=== PATIENT | male | born 1945 | race Caucasian/White ===

== ENCOUNTER → 2016-08-27 | Outpatient (CLI) | payer MEDICARE, OTHER ==
--- NOTE | 2016-08-27 17:21 | WOMENS IMAGING REPORT ---
EXAM DESCRIPTION: BILAT DIAGNOSTIC MAMMO W/CAD; U/S BREAST UNILAT LIMITED COMPLETED DATE/TIME: 08/27/2016 8:54 am; 08/27/2016 9:38 am REASON FOR STUDY: N63 LUMP; LUMP;N63 N63 UNSPECIFIED LUMP IN BREAST male patient, left breast palpa ble abnormality COMPARISON: None. TECHNIQUE: Standard craniocaudal and mediolateral oblique views of each breast recorded using digita l acquisition. Additional left retroareolar cone compression in the CC and MLO orientations, left breast 90 mediola teral view. Left retroareolar ultrasound with comparison right breast ultrasound imaging LIMITATIONS: None. FINDINGS: RIGHT BREAST MASSES: No suspicious masses. CALCIFICATIONS: No new or suspicious calcifications. ARCHITECTURAL DISTORTION: None. DEVELOPING DENSITY: None. ASYMMETRY: None noted. OTHER: No other significant findings. LEFT BREAST MASSES: No suspicious masses. CALCIFICATIONS: No new or suspicious calcifications. ARCHITECTURAL DISTORTION: None. DEVELOPING DENSITY: None. ASYMMETRY: There is asymmetric left retro areolar breast tissue from gynecomastia. No worrisome feat ures by mammography. OTHER: No other significant finding. Read with the assistance of CAD: .[facility] - R2 Cenova Version 1.3 .[facility] Imaging - R2 Cenova Version 1.[address] Imaging - R2 Cenova Version 2.4 .[facility] [place] [facility] - R2 Cenova Version 2.4 .[facility] - R2 Chain Person Version 9.2 Bilateral breast ultrasound: Ultrasound of the left retroareolar region demonstrates minimal gynecomastia with hypoechoic breast t issue. No worrisome sonographic features. Comparison right retroareolar ultrasound is unremarkable. BREAST DENSITY: a. The breasts are almost entirely fatty. BIRAD: 2 Benign findings. RECOMMENDATION: RECOMMENDED FOLLOW UP: Clinical followup for gynecomastia SPECIFIC INTERVENTION/IMAGING/CONSULTATION RECOMMENDED:No additional intervention/ imaging/consultati on needed at this time. COMMUNICATION:Patient notified by letter. COMMENT: PATIENT NOTIFIED BY LETTER. The [employer] (ACR) has developed recommendations for screening MRI of the breast s in certain patient populations, to be used in conjunction with mammography. Breast MRI surveillanc e may be appropriate for women with more than 20% lifetime risk of developing breast cancer as deter mined by genetic testing, significant family history of the disease, or history of mantle radiation f or Hodgkins Disease. ACR Practice Guidelines 2008. TECHNICAL DOCUMENTATION: FINDING NUMBER: (1) ASSESSMENT: (1) JOB ID: [id number] [employer]- All Rights Reserved
--- NOTE | 2016-08-27 17:21 | WOMENS IMAGING REPORT ---
EXAM DESCRIPTION: BILAT DIAGNOSTIC MAMMO W/CAD; U/S BREAST UNILAT LIMITED COMPLETED DATE/TIME: 08/27/2016 8:54 am; 08/27/2016 9:38 am REASON FOR STUDY: N63 LUMP; LUMP;N63 N63 UNSPECIFIED LUMP IN BREAST male patient, left breast palpa ble abnormality COMPARISON: None. TECHNIQUE: Standard craniocaudal and mediolateral oblique views of each breast recorded using digita l acquisition. Additional left retroareolar cone compression in the CC and MLO orientations, left breast 90 mediola teral view. Left retroareolar ultrasound with comparison right breast ultrasound imaging LIMITATIONS: None. FINDINGS: RIGHT BREAST MASSES: No suspicious masses. CALCIFICATIONS: No new or suspicious calcifications. ARCHITECTURAL DISTORTION: None. DEVELOPING DENSITY: None. ASYMMETRY: None noted. OTHER: No other significant findings. LEFT BREAST MASSES: No suspicious masses. CALCIFICATIONS: No new or suspicious calcifications. ARCHITECTURAL DISTORTION: None. DEVELOPING DENSITY: None. ASYMMETRY: There is asymmetric left retro areolar breast tissue from gynecomastia. No worrisome feat ures by mammography. OTHER: No other significant finding. Read with the assistance of CAD: .[facility] - R2 Cenova Version 1.3 .[facility] Imaging - R2 Cenova Version 1.[address] Imaging - R2 Cenova Version 2.4 .[facility] [place] R2 Cenova Version 2.4 .[facility] - R2 Fingernail Technician Version 9.2 Bilateral breast ultrasound: Ultrasound of the left retroareolar region demonstrates minimal gynecomastia with hypoechoic breast t issue. No worrisome sonographic features. Comparison right retroareolar ultrasound is unremarkable. BREAST DENSITY: a. The breasts are almost entirely fatty. BIRAD: 2 Benign findings. RECOMMENDATION: RECOMMENDED FOLLOW UP: Clinical followup for gynecomastia SPECIFIC INTERVENTION/IMAGING/CONSULTATION RECOMMENDED:No additional intervention/ imaging/consultati on needed at this time. COMMUNICATION:Patient notified by letter. COMMENT: PATIENT NOTIFIED BY LETTER. The [employer] (ACR) has developed recommendations for screening MRI of the breast s in certain patient populations, to be used in conjunction with mammography. Breast MRI surveillanc e may be appropriate for women with more than 20% lifetime risk of developing breast cancer as deter mined by genetic testing, significant family history of the disease, or history of mantle radiation f or Hodgkins Disease. ACR Practice Guidelines 2008. TECHNICAL DOCUMENTATION: FINDING NUMBER: (1) ASSESSMENT: (1) JOB ID: [id number] [employer]- All Rights Reserved
--- NOTE | 2016-08-27 17:21 | WOMENS IMAGING REPORT ---
EXAM DESCRIPTION: BILAT DIAGNOSTIC MAMMO W/CAD; U/S BREAST UNILAT LIMITED COMPLETED DATE/TIME: 08/27/2016 8:54 am; 08/27/2016 9:38 am REASON FOR STUDY: N63 LUMP; LUMP;N63 N63 UNSPECIFIED LUMP IN BREAST male patient, left breast palpa ble abnormality COMPARISON: None. TECHNIQUE: Standard craniocaudal and mediolateral oblique views of each breast recorded using digita l acquisition. Additional left retroareolar cone compression in the CC and MLO orientations, left breast 90 mediola teral view. Left retroareolar ultrasound with comparison right breast ultrasound imaging LIMITATIONS: None. FINDINGS: RIGHT BREAST MASSES: No suspicious masses. CALCIFICATIONS: No new or suspicious calcifications. ARCHITECTURAL DISTORTION: None. DEVELOPING DENSITY: None. ASYMMETRY: None noted. OTHER: No other significant findings. LEFT BREAST MASSES: No suspicious masses. CALCIFICATIONS: No new or suspicious calcifications. ARCHITECTURAL DISTORTION: None. DEVELOPING DENSITY: None. ASYMMETRY: There is asymmetric left retro areolar breast tissue from gynecomastia. No worrisome feat ures by mammography. OTHER: No other significant finding. Read with the assistance of CAD: .[facility] - R2 Cenova Version 1.3 .[facility] Imaging - R2 Cenova Version 1.3 .[facility] Imaging - R2 Cenova Version 2.4 .[facility] - R2 Cenova Version 2.4 .[facility] - R2 Outreach Team Member Version 9.2 Bilateral breast ultrasound: Ultrasound of the left retroareolar region demonstrates minimal gynecomastia with hypoechoic breast t issue. No worrisome sonographic features. Comparison right retroareolar ultrasound is unremarkable. BREAST DENSITY: a. The breasts are almost entirely fatty. BIRAD: 2 Benign findings. RECOMMENDATION: RECOMMENDED FOLLOW UP: Clinical followup for gynecomastia SPECIFIC INTERVENTION/IMAGING/CONSULTATION RECOMMENDED:No additional intervention/ imaging/consultati on needed at this time. COMMUNICATION:Patient notified by letter. COMMENT: PATIENT NOTIFIED BY LETTER. The [employer] (ACR) has developed recommendations for screening MRI of the breast s in certain patient populations, to be used in conjunction with mammography. Breast MRI surveillanc e may be appropriate for women with more than 20% lifetime risk of developing breast cancer as deter mined by genetic testing, significant family history of the disease, or history of mantle radiation f or Hodgkins Disease. ACR Practice Guidelines 2008. TECHNICAL DOCUMENTATION: FINDING NUMBER: (1) ASSESSMENT: (1) JOB ID: [id number] [employer]- All Rights Reserved
== END ==
LOC: WI 08:15
PROVIDERS: ATTEND Family Medicine
DX: N62 Hypertrophy of breast (principal)
CPT/HCPCS: 76642; G0204; 77066

== ENCOUNTER 2016-09-01 09:39 | Emergency (ER) | payer MEDICARE, OTHER ==
--- NOTE | 2016-09-01 09:58 | ER Document Report ---
ED Medical Screen (RME) - General Stated Complaint: NOSE BLEED Notes: THIS morning with a nosebleed which since stopped. States she's had a sinus infection recently. And takes an anticoagulant I greeted and performed a rapid initial assessment of this patient. Comprehensive ED assessment and evaluation of the patient, analysis of test results and completion of the medical decision making process will be conducted by additional ED providers. TRAVEL OUTSIDE OF THE [place] IN LAST 30 DAYS: No - Related Data Allergies/Adverse Reactions: No Known Drug Allergies Allergy (Verified 06/05/16 16:29) Past Medical History - Past Medical History Cardiac Medical History: Reports: Hx Atrial Fibrillation, Hx Congestive Heart Failure, Hx Coronary Artery Disease, Hx Hypercholesterolemia, Hx Hypertension Denies: Hx Heart Attack Pulmonary Medical History: Denies: Hx Asthma, Hx Bronchitis, Hx COPD, Hx Pneumonia Neurological Medical History: Denies: Hx Cerebrovascular Accident, Hx Seizures Endocrine Medical History: Reports: Hx Diabetes Mellitus Type 2 Musculoskeltal Medical History: Reports Hx Arthritis Psychiatric Medical History: Denies: Hx Depression Past Surgical History: Reports: Hx Cardiac Surgery - 3 stents, Hx Kidney (Renal Surgery) - Left Kidney mass removed February,, Hx Thyroid Surgery. Denies: Hx Pacemaker - Immunizations Hx Diphtheria, Pertussis, Tetanus Vaccination: Yes Physical Exam - Vital signs Vitals: Temp Pulse Resp BP Pulse Ox 98.2 F 69 18 141/65 H 97 09/01/16 09:55 09/01/16 09:55 09/01/16 09:55 09/01/16 09:55 09/01/16 09:55 Course - Vital Signs Vital signs: Temp Pulse Resp BP Pulse Ox 98.2 F 69 18 141/65 H 97 09/01/16 09:55 09/01/16 09:55 09/01/16 09:55 09/01/16 09:55 09/01/16 09:55
[2016-09-01 10:46] LABS: PROTHROMBIN TIME 14.4 SEC (11.4-15.4)
--- NOTE | 2016-09-01 11:20 | ER Document Report ---
ED ENT - General Chief Complaint: Nose Bleed Stated Complaint: NOSE BLEED Mode of Arrival: Ambulatory Information source: Patient Notes: 71-year-old Male presents to the emergency department complaining of episode of nose bleeding this morning. Patient reports has had congestion and clear runny nose over the last 2 days and states woke up this morning and noted his left nostril to be bleeding. Patient reports bleeding lasted intermittently for approximately 2 hours before self resolving upon arrival to ED. Denies previous history of epistaxis and states is on Xarelto due to cardiac history. Denies fever, chest pain, shortness of breath, weakness, dizziness, or syncope. TRAVEL OUTSIDE OF THE [place] IN LAST 30 DAYS: No - HPI Patient complains to provider of: Nose problem Onset: This morning Onset/Duration: Better Severity: Mild Pain Level: Denies Context: Recent Illness Similar symptoms previously: No - Related Data Allergies/Adverse Reactions: No Known Drug Allergies Allergy (Verified 09/01/16 09:58) Past Medical History - General Information source: Patient - Social History Smoking Status: Never Smoker Chew tobacco use (# tins/day): No Frequency of alcohol use: None Drug Abuse: None Lives with: Family Family History: Reviewed & Not Pertinent Patient has suicidal ideation: No Patient has homicidal ideation: No - Past Medical History Cardiac Medical History: Reports: Hx Atrial Fibrillation, Hx Congestive Heart Failure, Hx Coronary Artery Disease, Hx Hypercholesterolemia, Hx Hypertension Denies: Hx Heart Attack Pulmonary Medical History: Denies: Hx Asthma, Hx Bronchitis, Hx COPD, Hx Pneumonia Neurological Medical History: Denies: Hx Cerebrovascular Accident, Hx Seizures Endocrine Medical History: Reports: Hx Diabetes Mellitus Type 2 Renal/ Medical History: Denies: Hx Peritoneal Dialysis Musculoskeltal Medical History: Reports Hx Arthritis Psychiatric Medical History: Denies: Hx Depression Past Surgical History: Reports: Hx Cardiac Surgery - 3 stents, Hx Kidney (Renal Surgery) - Left Kidney mass removed February,, Hx Thyroid Surgery. Denies: Hx Pacemaker - Immunizations Hx Diphtheria, Pertussis, Tetanus Vaccination: Yes Review of Systems - Review of Systems Constitutional: No symptoms reported EENT: See HPI Cardiovascular: No symptoms reported Respiratory: No symptoms reported Gastrointestinal: No symptoms reported Genitourinary: No symptoms reported Male Genitourinary: No symptoms reported Musculoskeletal: No symptoms reported Skin: No symptoms reported Hematologic/Lymphatic: No symptoms reported Neurological/Psychological: No symptoms reported -: Yes All other systems reviewed and negative Physical Exam - Vital signs Vitals: Temp Pulse Resp BP Pulse Ox 98.2 F 69 18 141/65 H 97 09/01/16 09:55 09/01/16 09:55 09/01/16 09:55 09/01/16 09:55 09/01/16 09:55 Interpretation: Normal - General General appearance: Appears well, Alert In distress: None - HEENT Head: Normocephalic, Atraumatic Eyes: Normal Conjunctiva: Normal Eyelashes: Normal Pupils: PERRL Ears: Normal External canal: Normal Tympanic membrane: Normal Sinus: Normal. No: Tenderness Nasal: Other - Mild bilateral nasal turbinate swelling. No: Bloody discharge, Ecchymosis, Epistaxis, Purulent discharge Mouth/Lips: Normal Mucous membranes: Normal, Moist Pharynx: Normal. No: Blood in hypopharynx, Erythema, Exudate, Peritonsillar abscess, Post nasal drainage, Retropharyngeal abscess, Tonsillar hypertrophy, Uvular edema, Potential airway comprom., Other Neck: Normal. No: Anterior cervical chain, Posterior cervical chain, Lymphadenopathy, Meningismus, Subcutaneous emphysema - Respiratory Respiratory status: No respiratory distress Chest status: Nontender Breath sounds: Normal Chest palpation: Normal - Cardiovascular Rhythm: Regular Heart sounds: Normal auscultation Murmur: No Pulses: Normal: Radial Normal capillary refill: Yes - Abdominal Inspection: Normal Distension: No distension Bowel sounds: Normal Tenderness: Nontender Organomegaly: No organomegaly - Back Back: Normal, Nontender - Extremities General upper extremity: Normal inspection, Nontender, Normal color, Normal ROM , Normal strength, Normal temperature. No: Tender, Edema General lower extremity: Normal inspection, Nontender, Normal color, Normal ROM , Normal strength, Normal temperature, Normal weight bearing. No: Tender, Edema - Neurological Neuro grossly intact: Yes Cognition: Normal Orientation: AAOx4 [place] Coma Scale Eye Opening: Spontaneous [place] Coma Scale Verbal: Oriented [place] Coma Scale Motor: Obeys Commands [place] Coma Scale Total: 15 Speech: Normal Motor strength normal: LUE, RUE, LLE, RLE Sensory: Normal - Psychological Associated symptoms: Normal affect, Normal mood - Skin Skin Temperature: Warm Skin Moisture: Dry Skin Color: Normal Course - Re-evaluation Re-evalutation: 09/01/16 11:21 Patient hemodynamically stable, in no distress, afebrile. Epistaxis resolved prior to evaluation and no active bleeding at this time. Patient presentation and physical exam findings suggestive of mild URI at this time with no indication of a ARBS or other complications at this time. Patient appears stable for discharge and agrees with home care, follow-up with PCP, ED return precautions. - Vital Signs Vital signs: Temp Pulse Resp BP Pulse Ox 98.5 F 66 18 152/67 H 96 09/01/16 11:36 09/01/16 11:36 09/01/16 11:36 09/01/16 11:36 09/01/16 11:36 Discharge - Discharge Clinical Impression: Nosebleed URI (upper respiratory infection) Qualifiers: URI type: unspecified URI Qualified Code(s): J06.9 - Acute upper respiratory infection, unspecified Condition: Stable Disposition: HOME, SELF-CARE Instructions: Nosebleed Instructions ([facility]), Upper Respiratory Illness ([facility]), Acetaminophen, Use of Diphenhydramine Additional Instructions: Follow-up with your primary care provider tomorrow as discussed. Return to the emergency department for any return in or worsening symptoms, or any concerns. Forms: Elevated Blood Pressure Referrals: ELGIN VALENZUELA MD [Primary Care Provider] - Follow up tomorrow
[2016-09-01 11:37] VITALS: BP 152/67
== END 2016-09-01 11:37 | disposition home or self-care (01) ==
LOC: ER 09:39
DX: R04.0 Epistaxis (principal); J06.9 Acute upper respiratory infection, unspecified; I48.91 Unspecified atrial fibrillation; Z79.01 Long term (current) use of anticoagulants; I25.10 Atherosclerotic heart disease of native coronary artery without angina pectoris; I10 Essential (primary) hypertension; E11.9 Type 2 diabetes mellitus without complications; Z98.61 Coronary angioplasty status
CPT/HCPCS: 36415; 85610; 99283

== ENCOUNTER → 2016-11-25 | Outpatient (CLI) | payer MEDICARE, OTHER ==
[2016-11-25 13:01] LABS: HEMOGLOBIN 13.3 g/dL (13.5-17.0); HGB HCT DIFFERENCE -1.1; MEAN CORPUSCULAR HEMOGLOBIN 26.8 pg (27.0-33.4); MEAN CORPUSCULAR HGB CONC 32.4 g/dL (32.0-36.0); MEAN CORPUSCULAR VOLUME 83 fl (80-97); RED BLOOD COUNT 4.95 10^6/uL (4.35-5.55); RED CELL DISTRIBUTION WIDTH 15.3 % (11.5-14.0); WHITE BLOOD COUNT 6.2 10^3/uL (4.0-10.5)
[2016-11-25 13:04] LABS: APPEARANCE,URINE CLEAR; BILIRUBIN,URINE NEGATIVE (NEGATIVE); GLUCOSE, URINE NEGATIVE (NEGATIVE); KETONES,URINE NEGATIVE (NEGATIVE); LEUKOCYTE ESTERASE,URINE NEGATIVE (NEGATIVE); NITRITE,URINE NEGATIVE (NEGATIVE); PROTEIN,URINE NEGATIVE (NEGATIVE); URINE SPECIFIC GRAVITY 1.013; UROBILINOGEN,URINE NEGATIVE mg/dL (<2.0)
[2016-11-25 13:31] LABS: ANION GAP 13 (5-19); BLOOD UREA NITROGEN 22 mg/dL (7-20); CALCIUM 9.6 mg/dL (8.4-10.2); CARBON DIOXIDE 33 mmol/L (22-30); CHLORIDE 100 mmol/L (98-107); CREATININE RESULT 1.48 mg/dL (0.52-1.25); GLUCOSE 128 mg/dL (75-110); POTASSIUM 4.6 mmol/L (3.6-5.0); SODIUM 146.1 mmol/L (137-145)
== END ==
LOC: OD 11:58
PROVIDERS: ATTEND Internal Medicine Nephrology
DX: E11.22 Type 2 diabetes mellitus with diabetic chronic kidney disease (principal); I12.9 Hypertensive chronic kidney disease with stage 1 through stage 4 chronic kidney disease, or unspecified chronic kidney disease; N18.3 Chronic kidney disease, stage 3 (moderate); D64.9 Anemia, unspecified
CPT/HCPCS: 36415; 80048; 81001; 85027

== ENCOUNTER → 2017-01-06 | Outpatient (CLI) | payer MEDICARE, OTHER ==
[2017-01-06 14:17] LABS: HEMATOCRIT 42.7 % (37.9-51.0); HEMOGLOBIN 13.6 g/dL (13.5-17.0); HGB HCT DIFFERENCE -1.9; MEAN CORPUSCULAR HEMOGLOBIN 26.7 pg (27.0-33.4); MEAN CORPUSCULAR HGB CONC 31.8 g/dL (32.0-36.0); MEAN CORPUSCULAR VOLUME 84 fl (80-97); RED BLOOD COUNT 5.07 10^6/uL (4.35-5.55); WHITE BLOOD COUNT 6.4 10^3/uL (4.0-10.5)
[2017-01-06 14:29] LABS: ANION GAP 11 (5-19); BLOOD UREA NITROGEN 21 mg/dL (7-20); CALCIUM 9.3 mg/dL (8.4-10.2); CARBON DIOXIDE 30 mmol/L (22-30); CHLORIDE 100 mmol/L (98-107); CREATININE RESULT 1.39 mg/dL (0.52-1.25); GLUCOSE 161 mg/dL (75-110); MAGNESIUM 2.2 mg/dL (1.6-2.3); SODIUM 141.1 mmol/L (137-145)
== END ==
LOC: OD 13:22
PROVIDERS: ATTEND Internal Medicine Nephrology
DX: I12.9 Hypertensive chronic kidney disease with stage 1 through stage 4 chronic kidney disease, or unspecified chronic kidney disease (principal); N18.3 Chronic kidney disease, stage 3 (moderate); E87.6 Hypokalemia; E11.9 Type 2 diabetes mellitus without complications
CPT/HCPCS: 36415; 80048; 83735; 85027

== ENCOUNTER → 2017-01-30 | Outpatient (CLI) | payer MEDICARE ==
[2017-01-30 10:08] LABS: ANION GAP 13 (5-19); BLOOD UREA NITROGEN 45 mg/dL (7-20); CALCIUM 8.8 mg/dL (8.4-10.2); CARBON DIOXIDE 30 mmol/L (22-30); CHLORIDE 95 mmol/L (98-107); CREATININE RESULT 2.33 mg/dL (0.52-1.25); GLUCOSE 124 mg/dL (75-110); MAGNESIUM 2.3 mg/dL (1.6-2.3); POTASSIUM 4.2 mmol/L (3.6-5.0)
== END ==
LOC: OD 09:07
PROVIDERS: ATTEND Internal Medicine Nephrology
DX: E11.22 Type 2 diabetes mellitus with diabetic chronic kidney disease (principal); N18.3 Chronic kidney disease, stage 3 (moderate); I50.9 Heart failure, unspecified; E87.5 Hyperkalemia
CPT/HCPCS: 36415; 80048; 83735

== ENCOUNTER → 2017-03-11 | Day surgery (SDC) | payer MEDICARE ==
[~2017-03-11] MED LIST: LIDOCAINE 2% JELLY 5 ML TUBE ONE
== END ==
LOC: END 09:43
PROVIDERS: ATTEND Thoracic Surgery (Cardiothoracic Vascular Surgery)
PROC: 4A0B7BZ Measurement of Gastrointestinal Pressure, Via Natural or Artificial Opening (ICD-10-PCS; principal; 2017-03-11)
DX: K30 Functional dyspepsia (principal)
CPT/HCPCS: 91010

== ENCOUNTER → 2017-03-19 | Outpatient (CLI) | payer MEDICARE ==
[2017-03-19 12:11] LABS: HEMATOCRIT 39.5 % (37.9-51.0); HEMOGLOBIN 13.2 g/dL (13.5-17.0); HGB HCT DIFFERENCE 0.1; MEAN CORPUSCULAR HEMOGLOBIN 28.8 pg (27.0-33.4); MEAN CORPUSCULAR HGB CONC 33.5 g/dL (32.0-36.0); MEAN CORPUSCULAR VOLUME 86 fl (80-97); RED CELL DISTRIBUTION WIDTH 17.3 % (11.5-14.0); WHITE BLOOD COUNT 5.5 10^3/uL (4.0-10.5)
[2017-03-19 12:35] LABS: ANION GAP 11 (5-19); BLOOD UREA NITROGEN 34 mg/dL (7-20); CALCIUM 9.1 mg/dL (8.4-10.2); CARBON DIOXIDE 28 mmol/L (22-30); CHLORIDE 101 mmol/L (98-107); CREATININE RESULT 1.45 mg/dL (0.52-1.25); GLUCOSE 115 mg/dL (75-110); POTASSIUM 4.5 mmol/L (3.6-5.0); SODIUM 140.2 mmol/L (137-145)
[2017-03-19 12:37] LABS: MAGNESIUM 2.2 mg/dL (1.6-2.3)
== END ==
LOC: OD 11:22
PROVIDERS: ATTEND Internal Medicine Nephrology
DX: I12.9 Hypertensive chronic kidney disease with stage 1 through stage 4 chronic kidney disease, or unspecified chronic kidney disease (principal); N18.3 Chronic kidney disease, stage 3 (moderate); I50.9 Heart failure, unspecified
CPT/HCPCS: 36415; 80048; 83735; 83970; 84100; 85027

== ENCOUNTER → 2017-03-25 | Outpatient (CLI) | payer MEDICARE ==
[2017-03-25 13:11] LABS: ALANINE AMINOTRANSFERASE 26 U/L (21-72); ALBUMIN 4.2 g/dL (3.5-5.0); ALKALINE PHOSPHATASE 115 U/L (38-126); ANION GAP 13 (5-19); ASPARTATE AMINO TRANSFERASE 19 U/L (17-59); BILIRUBIN,DIRECT 0.4 mg/dL (0.0-0.4); BILIRUBIN,TOTAL 0.5 mg/dL (0.2-1.3); BLOOD UREA NITROGEN 31 mg/dL (7-20); CALCIUM 9.6 mg/dL (8.4-10.2); CARBON DIOXIDE 25 mmol/L (22-30); CHLORIDE 106 mmol/L (98-107); CREATININE RESULT 1.48 mg/dL (0.52-1.25); GLUCOSE 127 mg/dL (75-110); MAGNESIUM 2.3 mg/dL (1.6-2.3); POTASSIUM 4.8 mmol/L (3.6-5.0); SODIUM 143.7 mmol/L (137-145); TOTAL PROTEIN 7.6 g/dL (6.3-8.2)
== END ==
LOC: LAB 11:48
PROVIDERS: ATTEND Physician Assistant Medical
DX: E87.6 Hypokalemia (principal); R06.02 Shortness of breath
CPT/HCPCS: 36415; 80053; 83735; 83880

== ENCOUNTER → 2017-03-31 | Outpatient (CLI) | payer MEDICARE ==
[2017-03-31 11:37] LABS: ALANINE AMINOTRANSFERASE 28 U/L (21-72); ALBUMIN 3.7 g/dL (3.5-5.0); ALKALINE PHOSPHATASE 114 U/L (38-126); ANION GAP 7 (5-19); ASPARTATE AMINO TRANSFERASE 17 U/L (17-59); BILIRUBIN,DIRECT 0.4 mg/dL (0.0-0.4); BILIRUBIN,TOTAL 0.6 mg/dL (0.2-1.3); BLOOD UREA NITROGEN 33 mg/dL (7-20); CALCIUM 9.5 mg/dL (8.4-10.2); CARBON DIOXIDE 34 mmol/L (22-30); CHLORIDE 99 mmol/L (98-107); CREATININE RESULT 1.52 mg/dL (0.52-1.25); GLUCOSE 130 mg/dL (75-110); MAGNESIUM 2.2 mg/dL (1.6-2.3); POTASSIUM 4.3 mmol/L (3.6-5.0); SODIUM 140.4 mmol/L (137-145)
== END ==
LOC: LAB 10:49
PROVIDERS: ATTEND Physician Assistant Medical
DX: R06.02 Shortness of breath (principal); E87.6 Hypokalemia
CPT/HCPCS: 36415; 80053; 83735; 83880

== ENCOUNTER → 2017-06-16 | Outpatient (CLI) | payer MEDICARE ==
[2017-06-16 11:33] LABS: APPEARANCE,URINE CLEAR; BILIRUBIN,URINE NEGATIVE (NEGATIVE); GLUCOSE, URINE NEGATIVE (NEGATIVE); KETONES,URINE NEGATIVE (NEGATIVE); LEUKOCYTE ESTERASE,URINE NEGATIVE (NEGATIVE); NITRITE,URINE NEGATIVE (NEGATIVE); PROTEIN,URINE NEGATIVE (NEGATIVE); URINE SPECIFIC GRAVITY 1.008; UROBILINOGEN,URINE NEGATIVE mg/dL (<2.0)
[2017-06-16 11:38] LABS: HEMATOCRIT 41.9 % (37.9-51.0); HGB HCT DIFFERENCE 0.1; MEAN CORPUSCULAR HEMOGLOBIN 29.2 pg (27.0-33.4); MEAN CORPUSCULAR HGB CONC 33.5 g/dL (32.0-36.0); MEAN CORPUSCULAR VOLUME 87 fl (80-97); RED CELL DISTRIBUTION WIDTH 14.3 % (11.5-14.0); WHITE BLOOD COUNT 5.3 10^3/uL (4.0-10.5)
[2017-06-16 11:55] LABS: ALANINE AMINOTRANSFERASE 33 U/L (21-72); ALBUMIN 3.8 g/dL (3.5-5.0); ALKALINE PHOSPHATASE 99 U/L (38-126); ANION GAP 9 (5-19); ASPARTATE AMINO TRANSFERASE 18 U/L (17-59); BILIRUBIN,DIRECT 0.4 mg/dL (0.0-0.4); BILIRUBIN,TOTAL 0.8 mg/dL (0.2-1.3); BLOOD UREA NITROGEN 18 mg/dL (7-20); CALCIUM 9.6 mg/dL (8.4-10.2); CARBON DIOXIDE 34 mmol/L (22-30); CHLORIDE 102 mmol/L (98-107); CREATININE RESULT 1.42 mg/dL (0.52-1.25); GLUCOSE 142 mg/dL (75-110); POTASSIUM 4.5 mmol/L (3.6-5.0)
[2017-06-16 12:01] LABS: BLOOD UREA NITROGEN 18 mg/dL (7-20); CALCIUM 9.6 mg/dL (8.4-10.2); CARBON DIOXIDE 34 mmol/L (22-30); CHLORIDE 102 mmol/L (98-107); CREATININE RESULT 1.42 mg/dL (0.52-1.25); GLUCOSE 142 mg/dL (75-110); POTASSIUM 4.5 mmol/L (3.6-5.0)
[2017-06-16 12:02] LABS: ANION GAP 9 (5-19)
== END ==
LOC: OD 10:41
PROVIDERS: ATTEND Internal Medicine Nephrology
DX: I13.0 Hypertensive heart and chronic kidney disease with heart failure and stage 1 through stage 4 chronic kidney disease, or unspecified chronic kidney disease (principal); N18.3 Chronic kidney disease, stage 3 (moderate); I50.9 Heart failure, unspecified; E87.5 Hyperkalemia
CPT/HCPCS: 36415; 80048; 80053; 81001; 83735; 83880; 85027

== ENCOUNTER → 2017-07-09 | Outpatient (CLI) | payer MEDICARE ==
[2017-07-09 11:24] LABS: ANION GAP 9 (5-19); BLOOD UREA NITROGEN 27 mg/dL (7-20); CALCIUM 9.4 mg/dL (8.4-10.2); CARBON DIOXIDE 32 mmol/L (22-30); CHLORIDE 101 mmol/L (98-107); CREATININE RESULT 1.43 mg/dL (0.52-1.25); GLUCOSE 120 mg/dL (75-110); MAGNESIUM 2.1 mg/dL (1.6-2.3); POTASSIUM 4.2 mmol/L (3.6-5.0); SODIUM 142.4 mmol/L (137-145)
== END ==
LOC: OD 10:13
PROVIDERS: ATTEND Internal Medicine Nephrology
DX: I13.0 Hypertensive heart and chronic kidney disease with heart failure and stage 1 through stage 4 chronic kidney disease, or unspecified chronic kidney disease (principal); N18.3 Chronic kidney disease, stage 3 (moderate); I50.9 Heart failure, unspecified; E87.5 Hyperkalemia; R06.02 Shortness of breath
CPT/HCPCS: 36415; 80048; 83735; 83880

== ENCOUNTER → 2017-07-23 | Outpatient (CLI) | payer MEDICARE ==
[2017-07-23 14:13] LABS: ANION GAP 9 (5-19); BLOOD UREA NITROGEN 33 mg/dL (7-20); CALCIUM 9.6 mg/dL (8.4-10.2); CARBON DIOXIDE 36 mmol/L (22-30); CHLORIDE 95 mmol/L (98-107); CREATININE RESULT 1.31 mg/dL (0.52-1.25); GLUCOSE 201 mg/dL (75-110); MAGNESIUM 1.9 mg/dL (1.6-2.3); POTASSIUM 3.9 mmol/L (3.6-5.0); SODIUM 140.2 mmol/L (137-145)
== END ==
LOC: OD 13:03
PROVIDERS: ATTEND Internal Medicine Nephrology
DX: I12.9 Hypertensive chronic kidney disease with stage 1 through stage 4 chronic kidney disease, or unspecified chronic kidney disease (principal); N18.3 Chronic kidney disease, stage 3 (moderate); I50.9 Heart failure, unspecified
CPT/HCPCS: 36415; 80048; 83735

== ENCOUNTER → 2017-08-26 | Outpatient (CLI) | payer MEDICARE ==
[2017-08-26 15:50] LABS: HEMATOCRIT 44.8 % (37.9-51.0); HEMOGLOBIN 14.7 g/dL (13.5-17.0); MEAN CORPUSCULAR HEMOGLOBIN 28.2 pg (27.0-33.4); MEAN CORPUSCULAR HGB CONC 32.8 g/dL (32.0-36.0); MEAN CORPUSCULAR VOLUME 86 fl (80-97); PLATELET COUNT 191 10^3/uL (150-450); RED BLOOD COUNT 5.21 10^6/uL (4.35-5.55); RED CELL DISTRIBUTION WIDTH 13.9 % (11.5-14.0); WHITE BLOOD COUNT 7.3 10^3/uL (4.0-10.5)
[2017-08-26 16:21] LABS: BLOOD UREA NITROGEN 35 mg/dL (7-20); CALCIUM 10.1 mg/dL (8.4-10.2); CHLORIDE 91 mmol/L (98-107); GLUCOSE 155 mg/dL (75-110); MAGNESIUM 2.1 mg/dL (1.6-2.3); POTASSIUM 3.8 mmol/L (3.6-5.0); SODIUM 141.6 mmol/L (137-145)
[2017-08-26 16:28] LABS: ANION GAP 13 (5-19); CARBON DIOXIDE 38 mmol/L (22-30)
== END ==
LOC: OD 15:06
PROVIDERS: ATTEND Internal Medicine Nephrology
DX: I12.9 Hypertensive chronic kidney disease with stage 1 through stage 4 chronic kidney disease, or unspecified chronic kidney disease (principal); N18.3 Chronic kidney disease, stage 3 (moderate); I50.9 Heart failure, unspecified
CPT/HCPCS: 36415; 80048; 83735; 85027

== ENCOUNTER → 2017-10-10 | Outpatient (CLI) | payer MEDICARE ==
--- NOTE | 2017-10-10 14:37 | RADIOLOGY REPORT (SQ) ---
EXAM DESCRIPTION: CHEST PA/LATERAL; RIBS LEFT W/O PA CHEST COMPLETED DATE/TIME: 10/10/2017 2:11 pm REASON FOR STUDY: PLEURODYNIA COMPARISON: Chest film 04/02/2016 EXAM PARAMETERS: NUMBER OF VIEWS: PA and lateral chest, left rib detail five views TECHNIQUE: Digital Frontal and Lateral radiographic views of the chest acquired. Left rib detail marianela ms five views RADIATION DOSE: NA LIMITATIONS: none FINDINGS: LUNGS AND PLEURA: No opacities, masses or pneumothorax. No pleural effusion. MEDIASTINUM AND HILAR STRUCTURES: No masses or contour abnormalities. HEART AND VASCULAR STRUCTURES: No cardiomegaly. Calcified aortic arch. BONES: Old healed left anterior 4th and 5th rib fractures. Old left lateral 10th and 11th rib fractu res. No acute displaced rib fractures. HARDWARE: Implanted left anterior chest wall cardiac monitoring device OTHER: No other significant finding. IMPRESSION: No acute cardiopulmonary infiltrates Old healed left anterior 4th and 5th rib fractures. Old healed left lateral 10th and 11th rib fractures TECHNICAL DOCUMENTATION: JOB ID: [id number] [employer]- All Rights Reserved Reading location - IP/workstation name: [facility]
--- NOTE | 2017-10-10 14:37 | RADIOLOGY REPORT (SQ) ---
EXAM DESCRIPTION: CHEST PA/LATERAL; RIBS LEFT W/O PA CHEST COMPLETED DATE/TIME: 10/10/2017 2:11 pm REASON FOR STUDY: PLEURODYNIA COMPARISON: Chest film 04/02/2016 EXAM PARAMETERS: NUMBER OF VIEWS: PA and lateral chest, left rib detail five views TECHNIQUE: Digital Frontal and Lateral radiographic views of the chest acquired. Left rib detail marianela ms five views RADIATION DOSE: NA LIMITATIONS: none FINDINGS: LUNGS AND PLEURA: No opacities, masses or pneumothorax. No pleural effusion. MEDIASTINUM AND HILAR STRUCTURES: No masses or contour abnormalities. HEART AND VASCULAR STRUCTURES: No cardiomegaly. Calcified aortic arch. BONES: Old healed left anterior 4th and 5th rib fractures. Old left lateral 10th and 11th rib fractu res. No acute displaced rib fractures. HARDWARE: Implanted left anterior chest wall cardiac monitoring device OTHER: No other significant finding. IMPRESSION: No acute cardiopulmonary infiltrates Old healed left anterior 4th and 5th rib fractures. Old healed left lateral 10th and 11th rib fractures TECHNICAL DOCUMENTATION: JOB ID: [id number] [employer]- All Rights Reserved Reading location - IP/workstation name: [facility]
== END ==
LOC: OD 13:48
PROVIDERS: ATTEND Family Medicine
DX: R07.81 Pleurodynia (principal)
CPT/HCPCS: 71046

== ENCOUNTER 2017-11-11 11:30 | Day surgery (SDC) | payer MEDICARE ==
[2017-11-11] MEDS ORDERED: ONDANSETRON HCL INJ/PF 4 MG/2 ML SDV ONE (11:54)
[2017-11-11] MEDS ORDERED: NALOXONE HCL INJ/PF 0.4 MG/1 ML SDV ONE (11:54)
[2017-11-11] MEDS ORDERED: DIPHENHYDRAMINE HCL 50 MG/ML VIAL ONE (11:54)
[2017-11-11] MEDS ORDERED: GLUCAGON,HUMAN RECOMB 1 MG INJ ONE (11:55)
[2017-11-11] MEDS ORDERED: EPINEPHRINE INJ 1 MG/10 ML DISP.SYRIN ONE (11:55)
[2017-11-11] MEDS ORDERED: FLUMAZENIL INJ 0.5 MG/5 ML VIAL ONE (11:55)
[2017-11-11] MEDS: MIDAZOLAM 2 MG/2 ML INJ ONE ×2 (12:19→12:25)
[2017-11-11] MEDS: FENTANYL CITRATE INJ/PF 100 MCG/2 ML AMPUL ONE ×2 (12:21→12:22)
--- NOTE | 2017-11-11 12:39 | Operative Report ---
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 Schatzki's ring. Gastritis. 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 EGD with biopsy SURGEON: FERNIE BURNS ANESTHESIA: Moderate Sedation - 4 mg of Versed, 50 mcg of fentanyl. Conscious sedation monitoring time 30 minutes. TISSUE REMOVED OR ALTERED: As noted above. COMPLICATIONS: None. ESTIMATED BLOOD LOSS: None. INTRAOPERATIVE FINDINGS: As noted above. PROCEDURE: Patient tolerated the procedure well. No immediate postprocedure complications are noted. Patient discharged in good condition. Discharge date 11/11/2017. Discharge diet: Regular. Discharge activity: Regular. 2-3 week follow-up to discuss findings. Patient is instructed call the office or proceed to the emergency room should there be any further problems or questions. We will wait on pathology.
[2017-11-11 13:50] VITALS: BP 105/81
== END 2017-11-11 13:45 | disposition home or self-care (01) ==
LOC: END 11:30
PROVIDERS: ATTEND Internal Medicine Gastroenterology
DX: K22.2 Esophageal obstruction (principal); K44.9 Diaphragmatic hernia without obstruction or gangrene; K29.50 Unspecified chronic gastritis without bleeding; K22.70 Barrett's esophagus without dysplasia; M19.90 Unspecified osteoarthritis, unspecified site; E78.5 Hyperlipidemia, unspecified; I10 Essential (primary) hypertension; I25.10 Atherosclerotic heart disease of native coronary artery without angina pectoris; E11.9 Type 2 diabetes mellitus without complications; E03.9 Hypothyroidism, unspecified; I48.91 Unspecified atrial fibrillation; G47.30 Sleep apnea, unspecified; Z79.899 Other long term (current) drug therapy; Z79.01 Long term (current) use of anticoagulants; Z79.84 Long term (current) use of oral hypoglycemic drugs; Z87.891 Personal history of nicotine dependence; Z91.81 History of falling
CPT/HCPCS: 43270; 43239; 82962; 88342 ×2; 88305 ×2; J2250; J3010; J0171; J1200; J1610; J2310; J2405; J3490

== ENCOUNTER → 2017-11-26 | Outpatient (CLI) | payer MEDICARE ==
[2017-11-26 11:13] LABS: HEMATOCRIT 42.1 % (37.9-51.0); MEAN CORPUSCULAR HEMOGLOBIN 28.7 pg (27.0-33.4); MEAN CORPUSCULAR HGB CONC 33.2 g/dL (32.0-36.0); MEAN CORPUSCULAR VOLUME 87 fl (80-97); PLATELET COUNT 196 10^3/uL (150-450); RED BLOOD COUNT 4.87 10^6/uL (4.35-5.55); RED CELL DISTRIBUTION WIDTH 14.6 % (11.5-14.0); WHITE BLOOD COUNT 6.3 10^3/uL (4.0-10.5)
[2017-11-26 11:29] LABS: ANION GAP 10 (5-19); BLOOD UREA NITROGEN 33 mg/dL (7-20); CALCIUM 9.6 mg/dL (8.4-10.2); CARBON DIOXIDE 39 mmol/L (22-30); CHLORIDE 93 mmol/L (98-107); GLUCOSE 155 mg/dL (75-110); SODIUM 141.5 mmol/L (137-145)
== END ==
LOC: OD 10:07
PROVIDERS: ATTEND Internal Medicine Nephrology
DX: I12.9 Hypertensive chronic kidney disease with stage 1 through stage 4 chronic kidney disease, or unspecified chronic kidney disease (principal); N18.3 Chronic kidney disease, stage 3 (moderate); I50.9 Heart failure, unspecified; E11.9 Type 2 diabetes mellitus without complications
CPT/HCPCS: 36415; 80048; 83735; 85027

== ENCOUNTER 2018-02-04 15:56 | Emergency (ER) | payer OTHER, MEDICARE ==
[2018-02-04 16:05] VITALS: BP 155/78
--- NOTE | 2018-02-04 16:37 | ER Document Report ---
HPI - HPI Patient complains to provider of: Right arm pain Pain Level: 4 Context: Patient is a 72-year-old male complaining of right shoulder and arm pain 2 days. Patient reports that he was at [employer] reaching to his self above his head for a box fan. He reports the box fan fell from the shelf struck him in the head in right shoulder and right elbow. no LOC. + pain with movement of right arm Associated Symptoms: None Exacerbated by: Movement Relieved by: Denies Similar symptoms previously: No Recently seen / treated by doctor: No Past Medical History - General Information source: Patient - Social History Smoking Status: Current Every Day Smoker Frequency of alcohol use: None Drug Abuse: None Lives with: Family Family History: Reviewed & Not Pertinent - Past Medical History Cardiac Medical History: Reports: Hx Atrial Fibrillation, Hx Congestive Heart Failure, Hx Coronary Artery Disease, Hx Hypercholesterolemia, Hx Hypertension Denies: Hx Heart Attack Pulmonary Medical History: Denies: Hx Asthma, Hx Bronchitis, Hx COPD, Hx Pneumonia Neurological Medical History: Denies: Hx Cerebrovascular Accident, Hx Seizures Endocrine Medical History: Reports: Hx Diabetes Mellitus Type 2 Renal/ Medical History: Denies: Hx Peritoneal Dialysis Musculoskeltal Medical History: Reports Hx Arthritis Psychiatric Medical History: Denies: Hx Depression Past Surgical History: Reports: Hx Cardiac Surgery - 3 stents, Hx Kidney (Renal Surgery) - Left Kidney mass removed February,, Hx Thyroid Surgery. Denies: Hx Pacemaker - Immunizations Hx Diphtheria, Pertussis, Tetanus Vaccination: Yes Vertical Provider Document - CONSTITUTIONAL Agree With Documented VS: Yes Exam Limitations: No Limitations General Appearance: WD/WN, No Apparent Distress - INFECTION CONTROL TRAVEL OUTSIDE OF THE [place] IN LAST 30 DAYS: No - HEENT HEENT: Atraumatic, Conjuctival Injection, Normal ENT Exam - NECK Neck: Normal Inspection, Supple - RESPIRATORY Respiratory: Breath Sounds Normal, No Respiratory Distress - CARDIOVASCULAR Cardiovascular: Regular Rate, Regular Rhythm - MUSCULOSKELETAL/EXTREMETIES Musculoskeletal/Extremeties: Tender - right anterior AC mildly tender. + painful arc, + tenderness to right lateral epicondyle. right elbow without effusion. FROM. distal SMC intact Course - Re-evaluation Re-evalutation: 02/04/18 17:11 X-rays are negative. These results reviewed with patient. Patient is currently taking Percocet for chronic neck and back pain. He also has Voltaren gel at home. I am recommending him continue to use the Voltaren. Due to her decreased kidney function he will not be prescribed any NSAIDs. I estimate there is LOW risk for OPEN FRACTURE, COMPARTMENT SYNDROME, DEEP VENOUS THROMBOSIS, ACUTE TENDON RUPTURE, or NEUROVASCULAR INJURY thus I consider the discharge disposition reasonable. I have reevaluated this patient multiple times and no significant life threatening changes are noted. The patient and I have discussed the diagnosis and risks, and we agree with discharging home to closely follow-up with their primary doctor or the referral orthopedist with the understanding that symptoms and presentations can change. We also discussed returning to the Emergency Department immediately if new or worsening symptoms occur. We have discussed the symptoms which are most concerning (e.g., changing or worsening pain, numbness, weakness) that necessitate immediate return 02/04/18 17:17 - Vital Signs Vital signs: Temp Pulse Resp BP Pulse Ox 98.7 F 86 18 155/78 H 92 02/04/18 16:03 02/04/18 16:03 02/04/18 16:03 02/04/18 16:03 02/04/18 16:03 Discharge - Discharge Clinical Impression: Right lateral epicondylitis Contusion of right upper arm Qualifiers: Encounter type: initial encounter Qualified Code(s): S40.021A - Contusion of right upper arm, initial encounter Condition: Stable Disposition: HOME, SELF-CARE Instructions: Contusion ([facility]), Ice Packs ([facility]), Tennis Elbow (Lateral Epicondylitis) ([facility]), Warm Packs ([facility]) Additional Instructions: your xrays are negative for fracture Continue your Percocet as prescribed You may use the Voltaren gel for discomfort you may alternate ice/heat to sore areas follow up with primary care if pain persists more than 10 days Referrals: Jeff MYERS MD [ACTIVE STAFF] - Follow up as needed
--- NOTE | 2018-02-04 17:05 | RADIOLOGY REPORT (SQ) ---
EXAM DESCRIPTION: ELBOW RIGHT OVER 2 VIEWS COMPLETED DATE/TIME: 02/04/2018 4:57 pm REASON FOR STUDY: pain, box fan fell on right arm COMPARISON: None. NUMBER OF VIEWS: Four views. TECHNIQUE: AP, lateral, and both oblique radiographic images acquired of the right elbow. LIMITATIONS: None. FINDINGS: MINERALIZATION: Normal. BONES: No acute fracture or dislocation. No worrisome bone lesions. JOINT: Joint spaces well-maintained. Olecranon spur noted. SOFT TISSUES: No obvious joint fluid. OTHER: No other significant finding. IMPRESSION: No acute fracture identified. TECHNICAL DOCUMENTATION: JOB ID: [id number] [employer]- All Rights Reserved Reading location - IP/workstation name: [email or web address]
--- NOTE | 2018-02-04 17:07 | RADIOLOGY REPORT (SQ) ---
EXAM DESCRIPTION: SHOULDER RIGHT 2 OR MORE VIEWS COMPLETED DATE/TIME: 02/04/2018 4:57 pm REASON FOR STUDY: pain, box fan fell on right arm COMPARISON: None. NUMBER OF VIEWS: Three views. TECHNIQUE: Internal rotation, external rotation, and Y view images acquired of the right shoulder. LIMITATIONS: None. FINDINGS: MINERALIZATION: Normal. BONES: No acute fracture or dislocation. No worrisome bone lesions. JOINTS: No dislocation. VISUALIZED LUNGS AND RIBS: No pneumothorax. No rib fracture. SOFT TISSUES: No radiopaque foreign body. OTHER: Minor arthritic changes. IMPRESSION: No acute fracture or dislocation. TECHNICAL DOCUMENTATION: JOB ID: [id number] [employer]- All Rights Reserved Reading location - IP/workstation name: [email or web address]
== END 2018-02-04 17:28 | disposition home or self-care (01) ==
LOC: ER 15:56
DX: S40.021A Contusion of right upper arm, initial encounter (principal); M77.11 Lateral epicondylitis, right elbow; M25.511 Pain in right shoulder; W20.8XXA Other cause of strike by thrown, projected or falling object, initial encounter; Y93.89 Activity, other specified; Y92.512 Supermarket, store or market as the place of occurrence of the external cause; I25.10 Atherosclerotic heart disease of native coronary artery without angina pectoris; I10 Essential (primary) hypertension; E11.9 Type 2 diabetes mellitus without complications; F17.200 Nicotine dependence, unspecified, uncomplicated; M54.9 Dorsalgia, unspecified; M54.2 Cervicalgia; G89.29 Other chronic pain; Z79.891 Long term (current) use of opiate analgesic; Z95.5 Presence of coronary angioplasty implant and graft
CPT/HCPCS: 99283

== ENCOUNTER → 2018-03-11 | Outpatient (CLI) | payer OTHER, MEDICARE ==
[2018-03-11 12:51] LABS: HEMATOCRIT 42.9 % (37.9-51.0); HEMOGLOBIN 14.7 g/dL (13.5-17.0); MEAN CORPUSCULAR HEMOGLOBIN 29.2 pg (27.0-33.4); MEAN CORPUSCULAR HGB CONC 34.2 g/dL (32.0-36.0); MEAN CORPUSCULAR VOLUME 85 fl (80-97); PLATELET COUNT 188 10^3/uL (150-450); RED BLOOD COUNT 5.02 10^6/uL (4.35-5.55); RED CELL DISTRIBUTION WIDTH 14.2 % (11.5-14.0); WHITE BLOOD COUNT 7.1 10^3/uL (4.0-10.5)
[2018-03-11 13:12] LABS: APPEARANCE,URINE CLEAR; BILIRUBIN,URINE NEGATIVE (NEGATIVE); COLOR,URINE YELLOW; GLUCOSE, URINE NEGATIVE (NEGATIVE); KETONES,URINE NEGATIVE (NEGATIVE); LEUKOCYTE ESTERASE,URINE NEGATIVE (NEGATIVE); NITRITE,URINE NEGATIVE (NEGATIVE); PROTEIN,URINE NEGATIVE (NEGATIVE); URINE SPECIFIC GRAVITY 1.011; UROBILINOGEN,URINE NEGATIVE mg/dL (<2.0)
[2018-03-11 13:13] LABS: ANION GAP 10 (5-19); BLOOD UREA NITROGEN 38 mg/dL (7-20); CALCIUM 9.4 mg/dL (8.4-10.2); CARBON DIOXIDE 37 mmol/L (22-30); CHLORIDE 96 mmol/L (98-107); GLUCOSE 142 mg/dL (75-110); POTASSIUM 4.2 mmol/L (3.6-5.0); SODIUM 142.6 mmol/L (137-145)
== END ==
LOC: OD 12:22
PROVIDERS: ATTEND Internal Medicine Nephrology
DX: I12.9 Hypertensive chronic kidney disease with stage 1 through stage 4 chronic kidney disease, or unspecified chronic kidney disease (principal); N18.3 Chronic kidney disease, stage 3 (moderate); I50.9 Heart failure, unspecified; E87.5 Hyperkalemia; E11.9 Type 2 diabetes mellitus without complications
CPT/HCPCS: 36415; 80048; 81001; 85027

== ENCOUNTER → 2018-07-13 | Outpatient (CLI) | payer OTHER, MEDICARE ==
[2018-07-13 12:19] LABS: HEMATOCRIT 42.5 % (37.9-51.0); HEMOGLOBIN 14.4 g/dL (13.5-17.0); MEAN CORPUSCULAR HEMOGLOBIN 28.7 pg (27.0-33.4); MEAN CORPUSCULAR HGB CONC 33.9 g/dL (32.0-36.0); MEAN CORPUSCULAR VOLUME 85 fl (80-97); PLATELET COUNT 197 10^3/uL (150-450); RED CELL DISTRIBUTION WIDTH 14.4 % (11.5-14.0); WHITE BLOOD COUNT 7.5 10^3/uL (4.0-10.5)
[2018-07-13 12:45] LABS: ANION GAP 9 (5-19); BLOOD UREA NITROGEN 38 mg/dL (7-20); CALCIUM 9.9 mg/dL (8.4-10.2); CARBON DIOXIDE 38 mmol/L (22-30); CHLORIDE 96 mmol/L (98-107); GLUCOSE 128 mg/dL (75-110); POTASSIUM 4.1 mmol/L (3.6-5.0); SODIUM 142.9 mmol/L (137-145)
== END ==
LOC: OD 11:36
PROVIDERS: ATTEND Internal Medicine Nephrology
DX: E87.5 Hyperkalemia (principal); I50.9 Heart failure, unspecified; N18.3 Chronic kidney disease, stage 3 (moderate); E11.22 Type 2 diabetes mellitus with diabetic chronic kidney disease
CPT/HCPCS: 36415; 80048; 83735; 85027

== ENCOUNTER → 2018-12-10 | Outpatient (CLI) | payer MEDICARE ==
[2018-12-10 12:07] LABS: HEMATOCRIT 42.8 % (37.9-51.0); HEMOGLOBIN 14.5 g/dL (13.5-17.0); MEAN CORPUSCULAR HEMOGLOBIN 29.2 pg (27.0-33.4); MEAN CORPUSCULAR HGB CONC 33.9 g/dL (32.0-36.0); MEAN CORPUSCULAR VOLUME 86 fl (80-97); PLATELET COUNT 212 10^3/uL (150-450); RED BLOOD COUNT 4.96 10^6/uL (4.35-5.55); RED CELL DISTRIBUTION WIDTH 14.4 % (11.5-14.0)
[2018-12-10 12:28] LABS: APPEARANCE,URINE CLEAR; BILIRUBIN,URINE NEGATIVE (NEGATIVE); COLOR,URINE YELLOW; GLUCOSE, URINE NEGATIVE (NEGATIVE); KETONES,URINE NEGATIVE (NEGATIVE); LEUKOCYTE ESTERASE,URINE NEGATIVE (NEGATIVE); NITRITE,URINE NEGATIVE (NEGATIVE); PROTEIN,URINE NEGATIVE (NEGATIVE); URINE SPECIFIC GRAVITY 1.009; UROBILINOGEN,URINE NEGATIVE mg/dL (<2.0)
[2018-12-10 12:35] LABS: ANION GAP 9 (5-19); BLOOD UREA NITROGEN 50 mg/dL (7-20); CALCIUM 9.7 mg/dL (8.4-10.2); CARBON DIOXIDE 35 mmol/L (22-30); CHLORIDE 91 mmol/L (98-107); GLUCOSE 130 mg/dL (75-110); POTASSIUM 3.4 mmol/L (3.6-5.0)
== END ==
LOC: OD 11:20
PROVIDERS: ATTEND Internal Medicine Nephrology
DX: E11.22 Type 2 diabetes mellitus with diabetic chronic kidney disease (principal); N18.3 Chronic kidney disease, stage 3 (moderate); I50.9 Heart failure, unspecified
CPT/HCPCS: 36415; 80048; 81001; 83735; 85027

== ENCOUNTER → 2019-02-09 | Outpatient (CLI) | payer MEDICARE ==
--- NOTE | 2019-02-09 11:17 | WOMENS IMAGING REPORT ---
EXAM DESCRIPTION: BILAT DIAGNOSTIC MAMMO W/CAD; U/S BREAST UNILATERAL, COMPL COMPLETED DATE/TIME: 02/09/2019 8:34 am; 02/09/2019 9:21 am REASON FOR STUDY: N62 HYPERTROPHY OF BREAST; N62 LEFT BREAST; N62 RIGHT BREAST N62 HYPERTROPHY OF B REAST COMPARISON: Bilateral mammograms and male breast ultrasound 08/27/2016 EXAM PARAMETERS: Standard craniocaudal and mediolateral oblique views of each breast recorded using digital acquisition. Bilateral cone compression in the CC and MLO orientations retroareolar regions. Bilateral whole ian [address] mediolateral views. Bilateral breast ultrasound was also performed. Read with the assistance of CAD: .[facility] - [employer] Operator Version 9.2 LIMITATIONS: None. FINDINGS: RIGHT BREAST MASSES: No suspicious masses. Diffuse gynecomastia is present, significantly increased compared to mammograms CALCIFICATIONS: No new or suspicious calcifications. ARCHITECTURAL DISTORTION: None. DEVELOPING DENSITY: None. ASYMMETRY: None noted. OTHER: No other significant findings. LEFT BREAST MASSES: No suspicious masses. Diffuse gynecomastia is present, significantly increased compared to mammograms. CALCIFICATIONS: No new or suspicious calcifications. ARCHITECTURAL DISTORTION: None. DEVELOPING DENSITY: None. ASYMMETRY: None noted. OTHER: Since the prior mammograms, a left anterior chest wall loop recorder has been placed. Bilateral male breast ultrasound: Ultrasound on the right side demonstrates moderate gynecomastia in the retroareolar region, increased compared to 08/27/2016. No solid masses. No worrisome acoustic absorption. Ultrasound on the left side demonstrates moderate gynecomastia in the retroareolar region, increase c ompared to 08/27/2016. No solid masses. No worrisome acoustic absorption. IMPRESSION: Progressive bilateral gynecomastia as compared to prior exam 08/27/2016. No findings wor risome for malignancy/male breast cancer. BREAST DENSITY: b. There are scattered areas of fibroglandular density. BIRAD: ASSESSMENT: 2 Benign findings. RECOMMENDATION: RECOMMENDED FOLLOW UP: Close clinical follow-up SPECIFIC INTERVENTION/IMAGING/CONSULTATION RECOMMENDED:Close clinical follow-up COMMUNICATION:Patient notified by letter COMMENT: The patient has been notified of the results by letter per MQSA requirements. Additional no tification policies are in place for contacting patient with suspicious or incomplete findings. Quality ID #225: The [employer] recommends an annual screening mammogram for women aged 40 years or over. This facility utilizes a reminder system to ensure that all patients receive reminder letters, and/or direct phone calls for appointments. This includes reminders for routine scr eening mammograms, diagnostic mammograms, or other Breast Imaging Interventions when appropriate. Th is patient will be placed in the appropriate reminder system. TECHNICAL DOCUMENTATION: FINDING NUMBER: (1) ASSESSMENT: (1) JOB ID: [id number] [employer]- All Rights Reserved Reading location - IP/workstation name: [email or web address]
--- NOTE | 2019-02-09 11:17 | WOMENS IMAGING REPORT ---
EXAM DESCRIPTION: BILAT DIAGNOSTIC MAMMO W/CAD; U/S BREAST UNILATERAL, COMPL COMPLETED DATE/TIME: 02/09/2019 8:34 am; 02/09/2019 9:21 am REASON FOR STUDY: N62 HYPERTROPHY OF BREAST; N62 LEFT BREAST; N62 RIGHT BREAST N62 HYPERTROPHY OF B REAST COMPARISON: Bilateral mammograms and male breast ultrasound 08/27/2016 EXAM PARAMETERS: Standard craniocaudal and mediolateral oblique views of each breast recorded using digital acquisition. Bilateral cone compression in the CC and MLO orientations retroareolar regions. Bilateral whole ian st [address] mediolateral views. Bilateral breast ultrasound was also performed. Read with the assistance of CAD: .[facility] - [employer] Biostat[employer] Professor Version 9.2 LIMITATIONS: None. FINDINGS: RIGHT BREAST MASSES: No suspicious masses. Diffuse gynecomastia is present, significantly increased compared to mammograms CALCIFICATIONS: No new or suspicious calcifications. ARCHITECTURAL DISTORTION: None. DEVELOPING DENSITY: None. ASYMMETRY: None noted. OTHER: No other significant findings. LEFT BREAST MASSES: No suspicious masses. Diffuse gynecomastia is present, significantly increased compared to mammograms. CALCIFICATIONS: No new or suspicious calcifications. ARCHITECTURAL DISTORTION: None. DEVELOPING DENSITY: None. ASYMMETRY: None noted. OTHER: Since the prior mammograms, a left anterior chest wall loop recorder has been placed. Bilateral male breast ultrasound: Ultrasound on the right side demonstrates moderate gynecomastia in the retroareolar region, increased compared to 08/27/2016. No solid masses. No worrisome acoustic absorption. Ultrasound on the left side demonstrates moderate gynecomastia in the retroareolar region, increase c ompared to 08/27/2016. No solid masses. No worrisome acoustic absorption. IMPRESSION: Progressive bilateral gynecomastia as compared to prior exam 08/27/2016. No findings wor risome for malignancy/male breast cancer. BREAST DENSITY: b. There are scattered areas of fibroglandular density. BIRAD: ASSESSMENT: 2 Benign findings. RECOMMENDATION: RECOMMENDED FOLLOW UP: Close clinical follow-up SPECIFIC INTERVENTION/IMAGING/CONSULTATION RECOMMENDED:Close clinical follow-up COMMUNICATION:Patient notified by letter COMMENT: The patient has been notified of the results by letter per MQSA requirements. Additional no tification policies are in place for contacting patient with suspicious or incomplete findings. Quality ID #225: The [employer] recommends an annual screening mammogram for women aged 40 years or over. This facility utilizes a reminder system to ensure that all patients receive reminder letters, and/or direct phone calls for appointments. This includes reminders for routine scr eening mammograms, diagnostic mammograms, or other Breast Imaging Interventions when appropriate. Th is patient will be placed in the appropriate reminder system. TECHNICAL DOCUMENTATION: FINDING NUMBER: (1) ASSESSMENT: (1) JOB ID: [id number] [employer]- All Rights Reserved Reading location - IP/workstation name: [email or web address]
--- NOTE | 2019-02-09 11:17 | WOMENS IMAGING REPORT ---
EXAM DESCRIPTION: BILAT DIAGNOSTIC MAMMO W/CAD; U/S BREAST UNILATERAL, COMPL COMPLETED DATE/TIME: 02/09/2019 8:34 am; 02/09/2019 9:21 am REASON FOR STUDY: N62 HYPERTROPHY OF BREAST; N62 LEFT BREAST; N62 RIGHT BREAST N62 HYPERTROPHY OF B REAST COMPARISON: Bilateral mammograms and male breast ultrasound 08/27/2016 EXAM PARAMETERS: Standard craniocaudal and mediolateral oblique views of each breast recorded using digital acquisition. Bilateral cone compression in the CC and MLO orientations retroareolar regions. Bilateral whole ian [address] 90 mediolateral views. Bilateral breast ultrasound was also performed. Read with the assistance of CAD: .[facility] - [employer] Supervisor Winding Department Version 9.2 LIMITATIONS: None. FINDINGS: RIGHT BREAST MASSES: No suspicious masses. Diffuse gynecomastia is present, significantly increased compared to mammograms CALCIFICATIONS: No new or suspicious calcifications. ARCHITECTURAL DISTORTION: None. DEVELOPING DENSITY: None. ASYMMETRY: None noted. OTHER: No other significant findings. LEFT BREAST MASSES: No suspicious masses. Diffuse gynecomastia is present, significantly increased compared to mammograms. CALCIFICATIONS: No new or suspicious calcifications. ARCHITECTURAL DISTORTION: None. DEVELOPING DENSITY: None. ASYMMETRY: None noted. OTHER: Since the prior mammograms, a left anterior chest wall loop recorder has been placed. Bilateral male breast ultrasound: Ultrasound on the right side demonstrates moderate gynecomastia in the retroareolar region, increased compared to 08/27/2016. No solid masses. No worrisome acoustic absorption. Ultrasound on the left side demonstrates moderate gynecomastia in the retroareolar region, increase c ompared to 08/27/2016. No solid masses. No worrisome acoustic absorption. IMPRESSION: Progressive bilateral gynecomastia as compared to prior exam 08/27/2016. No findings wor risome for malignancy/male breast cancer. BREAST DENSITY: b. There are scattered areas of fibroglandular density. BIRAD: ASSESSMENT: 2 Benign findings. RECOMMENDATION: RECOMMENDED FOLLOW UP: Close clinical follow-up SPECIFIC INTERVENTION/IMAGING/CONSULTATION RECOMMENDED:Close clinical follow-up COMMUNICATION:Patient notified by letter COMMENT: The patient has been notified of the results by letter per MQSA requirements. Additional no tification policies are in place for contacting patient with suspicious or incomplete findings. Quality ID #225: The [employer] recommends an annual screening mammogram for women aged 40 years or over. This facility utilizes a reminder system to ensure that all patients receive reminder letters, and/or direct phone calls for appointments. This includes reminders for routine scr eening mammograms, diagnostic mammograms, or other Breast Imaging Interventions when appropriate. Th is patient will be placed in the appropriate reminder system. TECHNICAL DOCUMENTATION: FINDING NUMBER: (1) ASSESSMENT: (1) JOB ID: [id number] [employer]- All Rights Reserved Reading location - IP/workstation name: [email or web address]
== END ==
LOC: WI 07:54
PROVIDERS: ATTEND Family Medicine
DX: N62 Hypertrophy of breast (principal)
CPT/HCPCS: 76641; 77066

== ENCOUNTER → 2019-07-16 | Outpatient (CLI) | payer MEDICARE ==
[2019-07-16 13:06] LABS: ABSOLUTE EOSINOPHILS # (AUTO) 0.4 10^3/uL (0.0-0.6); ABSOLUTE LYMPHOCYTES (AUTO) 2.1 10^3/uL (0.5-4.7); ABSOLUTE MONOCYTES (AUTO) 0.7 10^3/uL (0.1-1.4); ABSOLUTE NEUT (AUTO) 4.9 10^3/uL (1.7-8.2); BASOPHILS % (AUTO) 0.4 % (0-2); EOSINOPHILS % (AUTO) 5.2 % (0-6); HEMATOCRIT 47.1 % (37.9-51.0); LYMPHOCYTES % (AUTO) 25.2 % (13-45); MEAN CORPUSCULAR HGB CONC 33.9 g/dL (32.0-36.0); MEAN CORPUSCULAR VOLUME 89 fl (80-97); MONOCYTES % (AUTO) 9.1 % (3-13); PLATELET COUNT 198 10^3/uL (150-450); RED BLOOD COUNT 5.31 10^6/uL (4.35-5.55); RED CELL DISTRIBUTION WIDTH 14.2 % (11.5-14.0); SEGMENTED NEUTROPHILS % (AUTO) 60.1 % (42-78); TOTAL CELLS COUNTED % (AUTO) 100 %; WHITE BLOOD COUNT 8.2 10^3/uL (4.0-10.5)
[2019-07-16 13:14] LABS: APPEARANCE,URINE CLEAR; BILIRUBIN,URINE NEGATIVE (NEGATIVE); COLOR,URINE YELLOW; GLUCOSE, URINE NEGATIVE (NEGATIVE); KETONES,URINE NEGATIVE (NEGATIVE); LEUKOCYTE ESTERASE,URINE NEGATIVE (NEGATIVE); NITRITE,URINE NEGATIVE (NEGATIVE); PROTEIN,URINE NEGATIVE (NEGATIVE); URINE SPECIFIC GRAVITY 1.011; UROBILINOGEN,URINE NEGATIVE mg/dL (<2.0)
[2019-07-16 13:25] LABS: ALBUMIN 4.1 g/dL (3.5-5.0); ANION GAP 8 (5-19); BLOOD UREA NITROGEN 41 mg/dL (7-20); CALCIUM 10.5 mg/dL (8.4-10.2); CARBON DIOXIDE 39 mmol/L (22-30); CHLORIDE 93 mmol/L (98-107); GLUCOSE 148 mg/dL (75-110); POTASSIUM 4.4 mmol/L (3.6-5.0)
== END ==
LOC: OD 12:39
PROVIDERS: ATTEND Internal Medicine Nephrology
DX: E11.22 Type 2 diabetes mellitus with diabetic chronic kidney disease (principal); I13.0 Hypertensive heart and chronic kidney disease with heart failure and stage 1 through stage 4 chronic kidney disease, or unspecified chronic kidney disease; N18.3 Chronic kidney disease, stage 3 (moderate); I50.9 Heart failure, unspecified
CPT/HCPCS: 36415; 80069; 81001; 85025

== ENCOUNTER 2019-12-22 20:55 | Emergency (ER) | payer MEDICARE ==
[2019-12-22 21:03] VITALS: BP 136/70
[2019-12-22] MEDS ORDERED: TETANUS/DIPHTHERIA TOX-ADULT 0.5 ML SYR (>=7YO) IM ONE (21:18)
--- NOTE | 2019-12-22 21:56 | RADIOLOGY REPORT (SQ) ---
EXAM DESCRIPTION: XR HAND 3 OR MORE VIEWS COMPLETED DATE/TME: 12/22/2019 00:00 CLINICAL HISTORY: 74 years, Male, laceration to 1st and 2nd digit with table saw COMPARISON: None. NUMBER OF VIEWS: 3 TECHNIQUE: Frontal, oblique, and lateral radiograph were acquired LIMITATIONS: None. FINDINGS: Diffuse soft tissue swelling is noted about the first and second digits. A retained metallic density is noted about the soft tissues along the medial aspect of the hand, best visualized on the frontal projection, specifically at the level of the fifth metacarpal base. There is also a nonspecific soft tissue calcification located about the medial aspect of the distal forearm. This is nonspecific. Otherwise, degenerative changes are evident about the first CMC and triscaphe joints. Additional degenerative changes are evident about the DIP joints. No definite acute fracture or dislocation is noted. IMPRESSION: Diffuse soft tissue swelling about the first and second digits. No underlying acute osseous anomaly. Retained radiopaque foreign body located within the soft tissues about the medial aspect of the hand, specifically at the level of the fifth metacarpal base. Nonspecific soft tissue calcification located about the medial aspect of the distal forearm. Correlate with physical exam. copyright 2010 [employer]- All Rights Reserved
[2019-12-22] MEDS ORDERED: LIDOCAINE 1% INJ (10 MG/ML) 10 ML MDV INJ ONE (22:39)
--- NOTE | 2019-12-22 23:04 | ER Document Report ---
Entered by BUNNY TIM SCRIBE 12/22/19 3881 Acting as scribe for:ELIZABETH BREWSTER DO ED Wound - General Chief Complaint: Laceration Stated Complaint: FINGER LACERATION Primary Care Provider: ELGIN VALENZUELA MD [Primary Care Provider] - Follow up as needed Mode of Arrival: Ambulatory Information source: Patient Notes: This 74 year old male patient presents to the ED today with complaints of a laceration to his left index finger and thumb that occurred approximately at 1630 this afternoon. Patient states that he was pushing wood into a table saw and when the wood kicked back, he cut his hand. He states that he washed the lacerations with water and that the bleeding is controlled as long as he doesn't bend his fingers. Patient takes Plavix per ED nurse. TRAVEL OUTSIDE OF THE [place] IN LAST 30 DAYS: No - HPI Occurred: Just prior to arrival Onset/Duration: Sudden Quality of pain: Sharp Severity: Moderate Pain Level: 1 Context: Injury Skin Temperature: Warm Capillary refill: < 3 seconds Sensations intact: Yes Distal pulses present: Yes - Related Data Allergies/Adverse Reactions: No Known Drug Allergies Allergy (Verified 02/04/18 15:59) Past Medical History - General Information source: Patient - Injured nondominant hand a short time ago using table saw - Social History Smoking Status: Never Smoker Cigarette use (# per day): No Chew tobacco use (# tins/day): No Smoking Education Provided: No Frequency of alcohol use: Occasional Family History: Reviewed & Not Pertinent Patient has suicidal ideation: No Patient has homicidal ideation: No - Past Medical History Cardiac Medical History: Reports: Hx Atrial Fibrillation, Hx Congestive Heart Failure, Hx Coronary Artery Disease, Hx Hypercholesterolemia, Hx Hypertension Endocrine Medical History: Reports: Hx Diabetes Mellitus Type 2 Musculoskeletal Medical History: Reports Hx Arthritis Past Surgical History: Reports: Hx Coronary Stent - x3, Hx Kidney (Renal Surgery) - Left Kidney mass removed February,, Hx Thyroid Surgery - Immunizations Hx Diphtheria, Pertussis, Tetanus Vaccination: Yes Review of Systems - Review of Systems Constitutional: No symptoms reported EENT: No symptoms reported Cardiovascular: No symptoms reported Respiratory: No symptoms reported Gastrointestinal: No symptoms reported Genitourinary: No symptoms reported Male Genitourinary: No symptoms reported Musculoskeletal: See HPI, Other - Left index finger and thumb pain Skin: See HPI, Other - Laceration to left index finger and thumb Hematologic/Lymphatic: No symptoms reported Neurological/Psychological: No symptoms reported -: Yes All other systems reviewed and negative Physical Exam - Vital signs Vitals: Temp Pulse Resp BP Pulse Ox 98.6 F 77 20 136/70 H 95 12/22/19 21:00 12/22/19 21:00 12/22/19 21:00 12/22/19 21:00 12/22/19 21:00 - General General appearance: Alert In distress: None - HEENT Head: Normocephalic, Atraumatic Eyes: Normal Pupils: PERRL - Respiratory Respiratory status: No respiratory distress Chest status: Nontender Breath sounds: Normal Chest palpation: Normal - Cardiovascular Rhythm: Regular Heart sounds: Normal auscultation Murmur: No Friction rub: No Gallop: None auscultated - Abdominal Inspection: Normal Distension: No distension Bowel sounds: Normal Tenderness: Nontender Organomegaly: No organomegaly - Back Back: Normal, Nontender - Extremities General lower extremity: Normal inspection Hand: Laceration - Left index finger and thumb - Neurological Neuro grossly intact: Yes Orientation: AAOx4 Vincent Coma Scale Eye Opening: Spontaneous Vincent Coma Scale Verbal: Oriented Vincent Coma Scale Motor: Obeys Commands [place] Coma Scale Total: 15 - Psychological Associated symptoms: Normal affect, Normal mood - Skin Skin irregularity: Laceration - 1.5 cm flap laceration noted to dorsal surface of left index finger. Avulsion type lacertion noted to pad of left thumb, non- suturable laceration Course - Re-evaluation Re-evalutation: 12/23/19 00:06 MDM 74 year old male - right handed - injured left hand while using table saw. Avuslion injury to pad of left thumb that is not sutuable and minor in severity. His index finger is a flap and closed easily with 2 4-0 nylon sutures. Tolerated well. Minimally contaminated. Cleansed and washed and will place on 5 days of cephalexin. - Vital Signs Vital signs: Temp Pulse Resp BP Pulse Ox 98.6 F 77 20 136/70 H 95 12/22/19 21:09 12/22/19 21:00 12/22/19 21:00 12/22/19 21:00 12/22/19 21:00 - Diagnostic Test Radiology reviewed: Image reviewed, Reports reviewed Procedures - Laceration/Wound Repair Left Hand 2nd digit Time completed: 22:45 Wound length (cm): 1.5 Wound's Depth, Shape: Superficial, Flap Anesthetic type: 1% Lidocaine Volume Anesthetic (mLs): 2 Wound explored: Contaminated Wound Debrided: Minimal Wound Repaired With: Sutures Suture Size/Type: 4:0 - 2 4-0 sutures placed without difficulty. Pt tolerated well without apparent complications. Post-procedure wound care: Sterile dressing applied Post-procedure NV exam normal: Yes Complications: No Discharge - Discharge Clinical Impression: Finger laceration Qualifiers: Encounter type: initial encounter Finger: index finger Damage to nail status: without damage Foreign body presence: unspecified Laterality: left Qualified Code(s): S61.211A - Laceration without foreign body of left index finger without damage to nail, initial encounter Injury of left hand Qualifiers: Encounter type: initial encounter Qualified Code(s): S69.92XA - Unspecified injury of left wrist, hand and finger(s), initial encounter Condition: Good Disposition: HOME, SELF-CARE Instructions: Laceration Care ([facility]), Prophylactic Antibiotic ([facility]), Soap Cleansing ([facility]), Tetanus Immunization Given ([facility]) Additional Instructions: Keep wound clean and dry and covered for 24 hours and then clean. Return here for streaking redness or drainage from the wound. Take tylenol for pain. Prescriptions: Cephalexin Monohydrate [Keflex 500 mg Capsule] 500 mg PO TID #15 capsule Referrals: ELGIN VALENZUELA MD [Primary Care Provider] - Follow up as needed I personally performed the services described in the documentation, reviewed and edited the documentation which was dictated to the scribe in my presence, and it accurately records my words and actions.
[2019-12-22] MEDS ORDERED: ACETAMINOPHEN 325 MG TABLET PO ONE (23:09)
== END 2019-12-22 23:27 | disposition home or self-care (01) ==
LOC: ER 20:55
DX: S61.211A Laceration without foreign body of left index finger without damage to nail, initial encounter (principal); S61.012A Laceration without foreign body of left thumb without damage to nail, initial encounter; W20.8XXA Other cause of strike by thrown, projected or falling object, initial encounter; Y93.89 Activity, other specified; I25.10 Atherosclerotic heart disease of native coronary artery without angina pectoris; I10 Essential (primary) hypertension; E11.9 Type 2 diabetes mellitus without complications; Z79.02 Long term (current) use of antithrombotics/antiplatelets; Z23 Encounter for immunization
CPT/HCPCS: 90471; 90714; 99282

== ENCOUNTER → 2020-04-14 | Outpatient (CLI) | payer MEDICARE ==
--- NOTE | 2020-04-14 15:29 | RADIOLOGY REPORT (SQ) ---
EXAM DESCRIPTION: CHEST PA/LATERAL IMAGES COMPLETED DATE/TIME: 04/14/2020 2:31 pm REASON FOR STUDY: CHRONIC SYSTOLIC (CONGESTIVE) HEART FAILURE COMPARISON: 04/02/2016 EXAM PARAMETERS: NUMBER OF VIEWS: two views TECHNIQUE: Digital Frontal and Lateral radiographic views of the chest acquired. RADIATION DOSE: NA LIMITATIONS: none FINDINGS: LUNGS AND PLEURA: No opacities, masses or pneumothorax. No pleural effusion. MEDIASTINUM AND HILAR STRUCTURES: No masses or contour abnormalities. HEART AND VASCULAR STRUCTURES: Heart size is borderline. No david pulmonary edema. BONES: No acute findings. HARDWARE: Loop recorder. OTHER: No other significant finding. IMPRESSION: Borderline heart size with no pulmonary edema. TECHNICAL DOCUMENTATION: JOB ID: [id number] [facility]- All Rights Reserved Reading location - IP/workstation name: [email or web address]
== END ==
LOC: OD 14:19
PROVIDERS: ATTEND Family Medicine
DX: I50.22 Chronic systolic (congestive) heart failure (principal)
CPT/HCPCS: 71046